=== PATIENT | male | born 1985 | race African-American/Black ===

== ENCOUNTER 2020-07-30 06:57 | Emergency (ER) | payer OTHER, SELFPAY ==
--- NOTE | 2020-07-30 07:13 | ED.BACK ---
HPI - Back Pain/Injury General Chief Complaint: Back Pain/Injury Stated Complaint: low back pain Time Seen by Provider: 07/30/20 07:13 Source: patient Mode of arrival: Ambulatory Limitations: no limitations History of Present Illness HPI Narrative: This is a 35-year-old transexual with complaint of low back pain. Patient states that they were lifting a heavy pylon yesterday with 3 other individuals. As they were lifting although they were trying to use proper technique patient felt pain in the lower back and indicates the L5-S1 region. Patient states the pain is localized midline. They do have some radiation down bilateral lower extremities but greater on the left at times. No numbness, tingling or weakness is appreciated. No saddle anesthesia is noted. No bowel or bladder incontinence. Patient has had some mild back pain in the past but relates this to ovarian cyst which was subsequently removed in the OR. Patient denies any fevers or chills. No other GI or urinary symptoms. Patient is on testosterone, hydrochlorothiazide and citalopram. Denies any allergies to medication. They did tried ibuprofen yesterday without much improvement. Patient denies any tobacco, etoh or IVDA. Patient states they did drive themself today. Related Data Previous Rx's Medication Instructions Recorded diazepam [Valium] 10 mg PO TID PRN #14 tab 07/30/20 meloxicam 7.5 mg PO DAILY PRN #20 tab 07/30/20 Allergies Allergy/AdvReac Type Severity Reaction Status Date / Time No Known Drug Allergies Allergy Verified 07/30/20 07:20 Review of Systems Review of Systems ROS Unobtainable: All systems reviewed & are unremarkable except as noted in HPI and below Patient History Social History Smoking Status: Never smoker Smoking Status: Never smoker Exam Narrative Exam Narrative: GENERAL: Alert and oriented x three, well-nourished in mild distress. HEENT: Head normocephalic, atraumatic, EOMI, pupils reactive, face symmetric, moist mucous membranes NECK: Supple, full range of motion CARDIOVASCULAR: Regular rate and rhythm without murmurs, rubs or gallops. RESPIRATORY: Breath sounds equal bilaterally, no wheezes rales or rhonchi. ABDOMEN: Soft, nontender. Normoactive bowel sounds all 4 quadrants. No guarding or rebound, rigidity, no mass : No CVA tenderness BACK: No cervical, thoracic or lumbar vertebral point tenderness. Patient notes very mild pressure over the L5-S1 region but no discrete pain. Patient does not have any tenderness over the SI joint or over the region of the piriformis bilaterally. Patient has mildly range of motion. Patient is sitting on the edge of the bed very straight backed and appearing uncomfortable. Patient's gait is [antalgic/normal]. Rectal exam is deferred. Muscle strength is 5/5 in lower extremities, DTRs are 2/4 and lower extremities. Dorsalis pedis and tibialis pulses are 2+ and lower extremities. Sensation is intact in the lower extremities. EXTREMITIES: Normal range of motion, no clubbing or edema. Neurovascularly intact NEUROLOGICAL: Cranial nerves II through XII grossly intact. Moving all extremities SKIN: Warm, dry, no petechiae, no rashes or lesions. Initial Vital Signs Initial Vital Signs: Vital Signs Temperature 97.4 F L 07/30/20 07:20 Pulse Rate 82 07/30/20 07:20 Respiratory Rate 16 07/30/20 07:20 Blood Pressure 130/63 07/30/20 07:20 Pulse Oximetry 98 07/30/20 07:20 Course Orders Ordered: Discontinued Medications Ketorolac Tromethamine (Ketorolac 30 Mg/Ml Vial) 60 mg IM NOW ONE Stop: 07/30/20 07:38 Last Admin: 07/30/20 08:08 Dose: 60 mg Documented by: VASILE Vital Signs Vital signs: Vital Signs - 8 hr 07/30/20 07:20 Temperature 97.4 F L Pulse Rate 82 Respiratory Rate 16 Blood Pressure 130/63 Pulse Oximetry 98 MDM - Back Pain/Injury MDM Narrative Medical decision making narrative: This is a 35-year-old with complaint of low back pain in the setting of lifting a heavy object. Patient appreciated pain immediately upon standing with heavy object. Pain is continued to be present. No red flag symptoms are appreciated although there is some tingling radiating down both legs left greater than right. Patient has tried ibuprofen yesterday but no other pain control today. After discussion with patient plan to have them follow-up with primary care in the next week if no improvement in symptoms plan for NSAIDs, muscle relaxers and rest. Red flag symptoms were discussed with the patient and they expressed their understanding that they are to return for immediate evaluation if any of these occur. We also discussed if patient continues to have symptoms beyond a week to follow up with primary care for further evaluation and testing if they are not having any red flag symptoms. Discharge Plan Departure Patient Disposition: Home Clinical Impression: Low back pain Qualifiers: Chronicity: acute Back pain laterality: midline Sciatica presence: with sciatica Sciatica laterality: bilateral sciatica Qualified Code(s): M54.42 - Lumbago with sciatica, left side Instructions: DI for Back Pain With Sciatica Activity Restrictions/Additional Instructions: Follow-up in the next 7-10 days if you are not having any improvement in your symptoms. Take meloxicam 1 tablet every 12 hours as needed for pain. Do not take any NSAIDs such as ibuprofen, naproxen or Aleve with this medication. You may take Tylenol in addition up to a 1000 mg every 8 hours with the meloxicam. Take muscle relaxer 1 tablet every 8 hours as needed. This medication can make you sleepy do not drive, perform hazardous activities or make any major decisions while taking it. Prescription sent to [facility] in [place]. Please return if you are having fevers greater 100.4 F, rapidly worsening or new back pain, loss of sensation, new weakness, inability to use or lift your lower extremity, loss of bowel or bladder control or other new or concerning symptoms. Prescriptions: New meloxicam 7.5 mg tablet 7.5 mg PO DAILY PRN (Reason: pain) Qty: 20 RF: 0 diazepam [Valium] 10 mg tablet 10 mg PO TID PRN (Reason: muscle spasm) Qty: 14 RF: 0 Stand Alone Forms: Work Release Note
[2020-07-30 07:20] VITALS: BP 130/63; PULSE 82; RESP 16; TEMP 36.3; O2SAT 98; BMI 36.8
[2020-07-30] MEDS: KETOROLAC 30 MG/ML VIAL 60 MG IM (08:08)
[2020-07-30 08:09] VITALS: BP 113/60; PULSE 70; RESP 16; O2SAT 97
== END 2020-07-30 08:14 | disposition home or self-care (01) ==
PROVIDERS: Emergency Provider Emergency Medicine
DX: M54.42 Lumbago with sciatica, left side (principal)
CPT/HCPCS: 96372; 99283; J1885

== ENCOUNTER 2021-08-05 17:19 | Emergency (ER) | payer OTHER, SELFPAY ==
[2021-08-05 17:20] VITALS: BP 143/68; PULSE 80; RESP 18; TEMP 36.1; O2SAT 97; BMI 36.8
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
[2021-08-05 18:24] VITALS: BP 117/59; PULSE 76; RESP 18; O2SAT 99
== END 2021-08-05 18:26 | disposition home or self-care (01) ==
PROVIDERS: Emergency Provider Emergency Medicine
DX: S63.613A Unspecified sprain of left middle finger, initial encounter (principal); M79.644 Pain in right finger(s); X58.XXXA Exposure to other specified factors, initial encounter
CPT/HCPCS: 73130; 99283